=== PATIENT | female | born 1950 | race Caucasian/White ===

== ENCOUNTER 2020-07-20 10:38 | Outpatient (CLI) | payer MEDICARE, SELFPAY ==
--- NOTE | ~2020-07-20 | MM_ITS ---
EXAMINATION: MM screening [facility] BI w dorothy HISTORY: Screening TECHNIQUE: Craniocaudal and mediolateral oblique 3-D tomosynthesis images were obtained and synthetic 2-D images were generated. CAD analysis was submitted and interpreted. COMPARISON: Comparison to multiple prior studies sequentially, with oldest reviewed study dated 12/19. BREAST PARENCHYMAL COMPOSITION: Breast composed of scattered areas of fibroglandular density. FINDINGS: There is no evidence of suspicious mass, calcification, or architectural distortion to sugg est malignancy in either breast. There has been no suspicious interval change. IMPRESSION: 1. No mammographic evidence of malignancy. 2. Recommend routine screening mammography in one year. BI-RADS Category 1: Negative Reviewed, dictated and finalized at location A.
== END 2020-07-20 10:39 | disposition home or self-care (01) ==
LOC: CHSIMG 10:41
PROVIDERS: PCP Family Medicine; Visit Provider Family Medicine
DX: Z12.31 Encounter for screening mammogram for malignant neoplasm of breast (principal)
CPT/HCPCS: 77063; 77067

== ENCOUNTER 2020-09-21 09:19 | Outpatient (CLI) | payer MEDICARE, SELFPAY ==
[2020-09-21 09:30] LABS: Hematocrit 38.4 % (35.0-42.0); Hemoglobin 12.8 g/dL (11.7-13.8); Mean Corpuscular HGB Conc 33.3 g/dL (32.0-36.0); Mean Corpuscular Hemoglobin 30.9 pg (27.0-31.0); Mean Corpuscular Volume 92.8 fL (78.0-102.0); Mean Platelet Volume 9.7 fl (9.2-11.8); Platelet Count Result 315 K/mm3 (150-420); Red Blood Count 4.14 M/mm3 (4.20-5.40); Red Cell Distribution Width 13.4 % (11.6-14.4); White Blood Count 4.2 K/mm3 (4.8-10.8)
[2020-09-21 10:35] LABS: Alanine Aminotransferase 12 U/L (14-59); Alkaline Phosphatase 93 U/L (46-116); Anion Gap 9 mmol/L (8-16); Aspartate Amino Transferase 12 U/L (15-37); Bilirubin,Total 0.4 mg/dL (0.00-1.00); Blood Urea Nitrogen 11 mg/dL (7-18); Calcium 9.2 mg/dL (8.5-10.1); Carbon Dioxide 28 mmol/L (21-32); Chloride 106 mmol/L (98-108); Cholesterol 217 mg/dL (0-200); Estimated Glomerular Filt Rate > 60; Glucose 91 mg/dL (70-99); HDL Direct 59 mg/dL (40-60); LDL Cholesterol Calculated 144 mg/dL (<130); Osmolality Calculated 295 mOsm/kg (285-295); Potassium 4.4 mmol/L (3.5-5.1); Sodium 143 mmol/L (136-145); Total Protein 7.1 g/dL (6.4-8.2); Triglycerides 71 mg/dL (0-150)
== END 2020-09-21 09:20 | disposition home or self-care (01) ==
PROVIDERS: PCP Family Medicine; Visit Provider Family Medicine
DX: I10 Essential (primary) hypertension (principal)
CPT/HCPCS: 36415; 80053; 80061; 85027

== ENCOUNTER 2023-02-05 11:05 | Outpatient (CLI) | payer MEDICARE, SELFPAY ==
[2023-02-05 11:19] LABS: Hematocrit 38.7 % (35.0-42.0); Hemoglobin 13.3 g/dL (11.7-13.8); Mean Corpuscular HGB Conc 34.4 g/dL (32.0-36.0); Mean Platelet Volume 9.8 fl (9.2-11.8); Platelet Count Result 312 K/mm3 (150-420); Red Blood Count 4.16 M/mm3 (4.20-5.40); Red Cell Distribution Width 13.2 % (11.6-14.4); White Blood Count 3.9 K/mm3 (4.8-10.8)
[2023-02-05 11:30] LABS: Band Neutrophils Percent 0 % (0-6); Basophils Absolute Manual 0.03 K/mm3 (0-0.1); Basophils Percent Manual 1 % (0-1); Eosinophils Absolute Manual 0.07 K/mm3 (0.02-0.5); Eosinophils Percent Manual 2 % (1-6); Lymphocytes Absolute Manual 2.06 K/mm3 (1.1-4.5); Lymphocytes Percent Manual 53 % (18-44); Monocytes Absolute Manual 0.42 K/mm3 (0.1-0.90); Monocytes Percent Manual 11 % (3-9); Neutrophils Absolute Manual 1.28 K/mm3 (1.7-7.2); Neutrophils Percent Manual 33 % (46-73); Platelet Estimate Adequate (Adequate); Total Cells Counted 100
[2023-02-05 12:06] LABS: Cholesterol 152 mg/dL (0-200); HDL Direct 77 mg/dL (40-60); LDL Cholesterol Calculated 66 mg/dL (<130); Triglycerides 46 mg/dL (0-150)
[2023-02-06 15:49] LABS: Alanine Aminotransferase 16 U/L (14-59); Alkaline Phosphatase 107 U/L (46-116); Anion Gap 12 mmol/L (8-16); Aspartate Amino Transferase 21 U/L (15-37); Bilirubin,Total 0.5 mg/dL (0.00-1.00); Blood Urea Nitrogen 10 mg/dL (7-18); Calcium 9.1 mg/dL (8.5-10.1); Carbon Dioxide 28 mmol/L (21-32); Chloride 106 mmol/L (98-108); Estimated Glomerular Filt Rate > 60; Glucose 93 mg/dL (70-99); Osmolality Calculated 301 mOsm/kg (285-295); Sodium 146 mmol/L (136-145); Total Protein 7.3 g/dL (6.4-8.2)
== END 2023-02-05 11:06 | disposition home or self-care (01) ==
LOC: CHSLAB 11:08
PROVIDERS: PCP Nurse Practitioner Family; Visit Provider Nurse Practitioner Family
DX: E78.5 Hyperlipidemia, unspecified (principal); I10 Essential (primary) hypertension
CPT/HCPCS: 36415; 80053; 80061; 85025

== ENCOUNTER 2023-02-08 08:46 | Outpatient (CLI) | payer MEDICARE, SELFPAY ==
--- NOTE | ~2023-02-08 | DEXA_ITS ---
Bone Density Report Name: AFSANEH CHANG Age: 72 Sex: Female Ethnicity: White Date of : 1950 Indication: postmenopausal; screening for osteoporosis; parental hip fracture; Referring Provider: Berna John Study: Bone densitometry was performed. Exam Date: February 08, 2023 Accession number: [id number] Bone Density: Region BMD T-score Z-score Classification AP Spine(L1-L4) 0.816 -2.1 0.0 Osteopenia Femoral Neck (Left) 0.513 -3.0 -1.2 Osteoporosis Total Hip (Left) 0.638 -2.5 -1.0 Osteoporosis Femoral Neck (Right) 0.525 -2.9 -1.1 Osteoporosis Total Hip (Right) 0.645 -2.4 -0.9 Osteopenia Femoral Neck Mean 0.519 -3.0 -1.2 Osteoporosis Total Hip Mean 0.642 -2.5 -0.9 Osteoporosis World Health Organization criteria for BMD impression classify patients as: Normal (T-score at or above -1.0), Osteopenia (T-score between -1.0 and -2.5), or Osteoporosis (T-score at or below -2.5). 10-year Fracture Risk: FRAX not reported because: Some T-score for Spine Total or Hip Total or Femoral Neck at or below -2.5 Treated for osteoporosis Clinical Information Provided by Patient: Parent has had a hip fracture Is being treated for osteoporosis Has used the following medications: Fosamax (i.e. alendronate) Patient maximum height was 65 Menopause Age: 50 No regular weight bearing exercise Drinks caffeinated beverages Onset of menses at age 15 Number of children 2 Impression: The patient has osteoporosis, based on the Left Femoral Neck T-score. The patient has risk factors, including: parental hip fracture. Discussion: It is important to ask patients whether they are taking their medications and to encourage continued and appropriate compliance with their osteoporosis therapies to reduce fracture risk. It is also important to review their risk factors and encourage appropriate calcium and vitamin D intakes, exercise, fall prevention and other lifestyle measures. Follow-Up: Consider a repeat BMD and Vertebral Fracture Assessment (VFA) exam in 2 years or sooner if medically necessary, to reassess this patient's status. Reported by: Dr. Víctor Kurtz on 02/08/2023 9:16:00 AM. Reviewed, dictated and finalized at location Sunil SWANSON
== END 2023-02-08 08:47 | disposition home or self-care (01) ==
LOC: CHSIMG 08:48
PROVIDERS: PCP Nurse Practitioner Family; Visit Provider Nurse Practitioner Family
DX: Z78.0 Asymptomatic menopausal state (principal); M81.0 Age-related osteoporosis without current pathological fracture; M85.89 Other specified disorders of bone density and structure, multiple sites
CPT/HCPCS: 77080

== ENCOUNTER 2025-06-13 10:59 | Emergency (ER) | payer MEDICARE, SELFPAY ==
--- NOTE | 2025-06-13 11:07 | ED.SKABFB ---
HPI - Skin/Abscess/Foreign Bdy General Chief complaint: Wound/Laceration Stated complaint: fish hook in left thumb Time Seen by Provider: 06/13/25 11:04 Source: patient Mode of arrival: ambulatory Limitations: no limitations History of Present Illness HPI narrative: Mercedes is a 74-year-old female patient presenting to the clinic today with complaints of a treble fishhook in her left dorsal proximal thumb. This occurred prior to arrival. Attempted to remove without success at home. Has not taken anything for pain. Last tetanus July of 2019. States she caught a bash and was trying to remove it and accidently hooked herself. Related Data Allergies Allergy/AdvReac Type Severity Reaction Status Date / Time egg Allergy Severe hives Verified 01/19/25 13:16 Penicillins Allergy Severe rash Verified 01/19/25 13:16 Review of Systems Review of Systems: Pertinent positives per HPI. Patient denies any fever, chills, rash, headache, visual changes, dizziness, cough, runny nose, sore throat, shortness of breath, chest pain, palpitations, nausea, vomiting, diarrhea, constipation, abdominal pain, or any urinary issues. [facility] Past Medical History Medical History (Updated 06/13/25 @ 11:11 by Roman Infante APRN) Osteoporosis Hypertension Surgical History Surgical History History of splenectomy Age 9 Family History Family History Father , Age 78 No problems noted. Mother , Age 97. Renal failure Social History Social History Smoking status: Never smoker Alcohol intake: never Substance use: never Substance use type: does not use Living arrangements: with family Additional living arrangements comments: . 2 Adult Children. Occupation/Education: retired Comments At the time of my signature, I reviewed and agree with the nursing past medical, surgical, social, and family history. There is no relevant family history pertinent to the patient complaint. Exam Narrative: General: Well-developed, well nourished, in no apparent distress Head: Normocephalic, atraumatic. Cardio: Regular rate and rhythm, s1 and s2 normal, no murmur appreciated. Resp: Clear to auscultation bilaterally, no rhonchi, rales, wheezing or rubs. Integumentary: Cuthbert, warm, and dry, intact without lesion, no rashes. 1 xin of Treble fishhook embedded into the skin of the left proximal dorsal thumb. Bleeding controlled. No drainage or redness. Course Course Emergency Course: Portions of this record may have been created with voice recognition software. Level of Care: Express Care Visit Vital Signs Vital signs: Vital Signs Temperature 36.7 C 06/13/25 11:17 Pulse Rate 70 06/13/25 11:17 Respiratory Rate 16 06/13/25 11:17 Blood Pressure 142/74 H 06/13/25 11:17 Pulse Oximetry 99 06/13/25 11:17 Temperature 36.7 C 06/13/25 11:17 Pulse Rate 70 06/13/25 11:17 Respiratory Rate 16 06/13/25 11:17 Blood Pressure 142/74 H 06/13/25 11:17 Pulse Oximetry 99 06/13/25 11:17 Vital signs reviewed Procedures Foreign Body Removal Foreign Body #1: Foreign Body Removal Date: 06/13/25 Time Out Performed: yes Site: left (thumb) Description of foreign body: fish hook Sedation/Analgesia: none Technique: removal with forceps (wire cutters) Confirmed by:: direct visualization Complications: none Post-procedure exam: awake, alert, normal BP, normal HR and normal O2 sat Neurovascular: normal distal pulse, normal capillary fill, distal light touch sensation intact, distal motor function normal, no signs of compartment syndrome and no change from pre-procedure Foreign Body Removal Narrative: Verbal consent obtained for fish hook removal in the clinic today. Area was cleansed with antiseptic wound wash and a 27 gauge needle was used to instill 0.25ml of Lidocaine without epi in the surrounding skin tissue. Exposed portion of the treble hook was removed using a wire twister. A needle transport truck driver was then used to push the xin through the skin and xin was removed with the wire cutters and remaining hook was then removed successfully. Patient tolerated well. Area was recleansed and MICHELLE and band aid applied. MDM - Skin/Abscess/Foreign Bdy MDM Narrative Medical decision making narrative: At the time of visit patient is resting comfortably on the exam table. Patient appears to be nontoxic. Complaints of a treble fishhook in her left dorsal proximal thumb. This occurred prior to arrival. Attempted to remove without success at home. Has not taken anything for pain. Last tetanus July of 2019. States she caught a bash and was trying to remove it and accidently hooked herself. Bleeding controlled. No drainage. Tetanus ordered. No localized redness or swelling. No tenderness or step-off deformity over the bony structure. Procedures: Verbal consent obtained for fish hook removal in the clinic today. Area was cleansed with antiseptic wound wash and a 27 gauge needle was used to instill 0.25ml of Lidocaine without epi in the surrounding skin tissue. Exposed portion of the treble hook was removed using a wire twister. A needle transport truck driver was then used to push the xin through the skin and xin was removed with the wire cutters and remaining hook was then removed successfully. Patient tolerated well. Area was recleansed and MICHLELE and band aid applied. Medications: Lidocaine 1% 0.25 SQ and tdap 0.5ml IM Plan: Patient had dirty treble fishing hook embedded into the skin of the left proximal dorsal thumb- removed successfully in the clinic today. Tdap was given. Will also Rx Cephalexin to cover for secondary infection. Supportive measures were discussed with the patient and they voiced understanding discharge instructions and agrees to treatment plan. Return precautions reviewed Differential Diagnosis Differential diagnosis: Likely abscess of skin or subcutaneous tissue (Thumb fracture), cellulitis and other (Yah-Ta-Hey-left thumb) Discharge Plan Discharge Clinical Impression: Fish hook injury of left thumb Patient Disposition: Home Condition: Stable Instructions: Antibiotic Form, Soft Tissue Foreign Body (ED) Additional Instructions: Fish hook was removed in the clinic today Tetanus was updated in the clinic today Keep area clean and dry Wash daily with soap and water Take cephalexin as prescribed. May take Tylenol/Motrin as needed for pain or fever as directed per bottle Watch for signs and symptoms of infection-fever, redness, swelling, purulent discharge, increase in pain, or streaking Patient Language: Sami Prescriptions: New cephalexin 500 mg capsule 500 mg PO Q12H 7 Days Qty: 14 0RF No Action amlodipine 10 mg tablet See Rx Instructions .ROUTE .COMPLEX Qty: 90 3RF Dose Instruction: TAKE 1 TABLET BY MOUTH EVERY DAY Rx Instructions: TAKE 1 TABLET BY MOUTH EVERY DAY atorvastatin 20 mg tablet See Rx Instructions .ROUTE .COMPLEX Qty: 90 3RF Dose Instruction: TAKE 1 TABLET BY MOUTH EVERY DAY Rx Instructions: TAKE 1 TABLET BY MOUTH EVERY DAY cholecalciferol (vitamin D3) 50 mcg (2,000 unit) capsule 50 mcg PO DAILY Qty: 30 2RF calcium carbonate [Calcium 600] 600 mg calcium (1,500 mg) tablet 600 mg PO DAILY Qty: 30 0RF Follow-up/Referrals: Garfield Lawrence DO [Primary Care Provider] - Time of Disposition: 11:31 Quality NIHSS Nursing Documentation ED NIHSS nursing documentation: reviewed/agree
[2025-06-13 11:17] VITALS: BP 142/74; PULSE 70; RESP 16; TEMP 36.7; O2SAT 99
[2025-06-13] MEDS: TETANUS,DIPHTHERIA,AC PERTUSSIS ADULT (0.5 ML) BOOSTRIX IM (11:19)
[2025-06-13] MEDS: LIDOCAINE 1% LOCAL INJ 2 ML AMPUL INFILTRATE (11:20)
== END 2025-06-13 11:35 | disposition home or self-care (01) ==
PROVIDERS: Emergency Provider Nurse Practitioner Family; PCP Family Medicine
DX: S61.042A Puncture wound with foreign body of left thumb without damage to nail, initial encounter (principal); W45.8XXA Other foreign body or object entering through skin, initial encounter; Z23 Encounter for immunization; I10 Essential (primary) hypertension; M81.0 Age-related osteoporosis without current pathological fracture
CPT/HCPCS: 90471; 90715; 99213; G0463; J2003